=== PATIENT | male | born 1935 | race Caucasian/White ===

== ENCOUNTER → 2017-07-26 | Outpatient (CLI) | payer MEDICARE ==
[~2017-07-26] MED LIST: ASPI-1471 PO; ASPI-757 PO; ASPI81TA94 PO; DIOVAN; FLU45SYR25 IM ONLY; HYDR12.561 PO; LANS15CA32 PO; PNEU0.5D3 IM; SIMV-42 PO; SIMV-49 PO; SIMV10TA98 PO; TADA10TA14 PO; TADA2.5T3 PO; VAL80 PO; VALS160T2 PO; VALS1TAB61 PO; VALS1TAB63 PO
--- NOTE | 2017-07-27 09:06 | EKG ---
FACILITY: [facility] - [place], [place] PATIENT NAME: MARÍA FRANCISCO : [id number] MR: [id number] V: [id number] EXAM DATE: ORDERING PHYSICIAN: CYNDY BROWN TECHNOLOGIST: DAVID Test Reason : ARRHYTHMIA Blood Pressure : / mmHG Vent. Rate : 067 BPM Atrial Rate : 067 BPM P-R Int : 178 ms QRS Dur : 098 ms QT Int : 428 ms P-R-T Axes : 066 002 070 degrees QTc Int : 452 ms Sinus rhythm with occasional premature ventricular complexes Otherwise normal ECG When compared with ECG of 12-SEP-2013 23:04, premature ventricular complexes are now present Referred By: KEVIN Confirmed By:
== END ==
LOC: RESP 16:47
PROVIDERS: ATTEND Internal Medicine
DX: Z02.9 Encounter for administrative examinations, unspecified (principal)

== ENCOUNTER → 2017-08-01 | Outpatient (CLI) | payer MEDICARE ==
--- NOTE | 2017-08-02 17:15 | RT HOLTER TEST ---
FACILITY: [facility] - [place] PATIENT NAME: MARÍA FRANCISCO : [id number] MR: [id number] V: [id number] EXAM DATE: ORDERING PHYSICIAN: CYNDY BROWN TECHNOLOGIST: PANDA Hook-up date: 2017-08-01 13:08:00 Duration: 23:56:00 Test Indications: arrhytmia Medications: BP MED? 87518 QRS complexes 5382 Ventricular ectopics which represent 5 % of total QRS comp. 18 Supraventricular ectopics which represent <1 % of total QRS comp. * Paced QRS complexes which represent % of total QRS comp. VENTRICULAR ECTOPY 5316 Isolated 212 Bigeminal Cycles 33 Couplets 0 Runs 0 Beats in Runs * Beats LONGEST at * BPM at :: -- * Beats FASTEST at * BPM at :: -- SUPRAVENTRICULAR ECTOPY 18 Isolated 0 Couplets 0 Runs 0 Beats in Runs * Beats LONGEST at * BPM at :: -- * Beats FASTEST at * BPM at :: -- HEART RATES 48 MIN at 07:30:48 2017-08-02 65 AVG 105 MAX at 11:34:24 2017-08-02 LONGEST RR 1.696 secs at 03:50:23 2017-08-02 S-T LEVELS Channel 1 -12.800 mm MIN at 13:08:00 2017-08-01 -12.800 mm MAX at 13:08:00 2017-08-01 Channel 2 -12.800 mm MIN at 13:08:00 2017-08-01 -12.800 mm MAX at 13:08:00 2017-08-01 Channel 3 -12.800 mm MIN at 13:08:00 2017-08-01 -12.800 mm MAX at 13:08:00 2017-08-01 The patient was in a sinus rhythm throughout with rare supraventricular ectopy (SVE) and occasional v entricular ectopy (VE) (i.e. about 6% of QRS beats were VE). There were some symptom reports with VE, but others without. Confirmed by MARSHALL ECHEVARRIA ([id number]) on 08/02/2017 5:14:57 PM Referred By: Overread By: MARSHALL ECHEVARRIA
== END ==
LOC: RESP 07:00
PROVIDERS: ATTEND Internal Medicine
DX: I49.9 Cardiac arrhythmia, unspecified (principal)
CPT/HCPCS: 93225; 93226

== ENCOUNTER → 2017-08-25 | Outpatient (CLI) | payer MEDICARE ==
[~2017-08-25] MED LIST changes: -VALS160T2 PO; +VALS160T7 PO
--- NOTE | 2017-08-25 14:53 | RADIOLOGY IMAGING REPORT ---
[place] [facility] [place] NAME[place] Helder Wilkins : 1935 MR: [id number] V: [id number] EXAM DATE: ORDERING PHYSICIAN: CYNDY BROWN TECHNOLOGIST: Location: [facility] [place] Patient: Helder Wilkins : 1935 Visit/Account:[id number] Date of Sevice: 08/25/2017 EXAMINATION: Single Isotope SPECT Imaging with Exercise and Gated SPECT Imaging DATE OF EXAMINATION: 08/25/2017 DATE OF INTERPRETATION: 08/25/2017 REQUESTING PHYSICIAN: CYNDY BROWN INDICATION: The patient is a 82-year-old male evaluated for PVCs. PROCEDURE: After informed consent the patient received an intravenous injection of 11.4 mCi of Tc-9 9m sestamibi followed at the appropriate time interval by rest imaging. The patient then exercised a ccording to the standard Cecilio protocol for 10:50 minutes achieving 11 METS. Resting heart rate was 60 bpm with a peak heart rate of 139 bpm which is 99 % of maximal predicted heart rate for age. Blo od pressure at rest was 149 / 95; blood pressure during exercise was 186 / 74. There was no chest pa in during exercise. Exercise was discontinued because of fatigue. Baseline EKG demonstrates normal sinus rhythm, no ST or T-wave abnormalities. There were no EKG changes of ischemia at peak exercise. Approximately one minute and 30 seconds prior to the termination of exercise, the patient received an intravenous injection of 31.3 mCi of Tc-99m sestamibi followed by stress imaging. RAW DATA: Examination of the summed raw data revealed a good quality study. MYOCARDIAL PERFUSION: The tomographic images demonstrate no evidence of infarct or reversible ischem ia. GATED IMAGES: The gated images demonstrate normal wall motion, ejection fraction 64% IMPRESSION: 1. Good quality study 2. Normal myocardial perfusion scan. 3. Normal LV systolic function; LVEF 64%. 4. Based on the results of this exam, the patient appears to be at low risk for future cardiovascular events. Report Dictated By: Alex Cano at 08/25/2017 2:44 PM Report E-Signed By: Alex Cano at 08/25/2017 2:48 PM WSN:[id number]
--- NOTE | 2017-08-26 23:11 | RT STRESS TEST REPORT ---
FACILITY: [facility] - [place] PATIENT NAME: MARÍA FRANCISCO : [id number] MR: [id number] V: [id number] EXAM DATE: ORDERING PHYSICIAN: CYNDY BROWN TECHNOLOGIST: Jimmy Acquisition Time: 2017-08-25 09:21:14 Total Exercise Time: 00:10:50 Test Indications: PVC's Medications: SEE NM LIST Protocol: JUANY 2 Max HR: 139 BPM 99% of Pred: 140 BPM Max BP: 186/074 mmHG Max Work Load: 9.9 METS see nuclear med rport Confirmed by FRANCIA WILHELM ([id number]) on 08/26/2017 11:11:16 PM Referred By: Overread By: FRANCIA WILHELM
== END ==
LOC: RESP 00:43
PROVIDERS: ATTEND Internal Medicine
DX: I49.3 Ventricular premature depolarization (principal)
CPT/HCPCS: 78452; 93017; A9500

== ENCOUNTER → 2017-11-21 | Outpatient (CLI) | payer MEDICARE | LOC: LAB 08:45 | PROVIDERS: ATTEND Urology | DX: R97.20 Elevated prostate specific antigen [PSA] (principal) | CPT/HCPCS: 36415; 84153 ==

== ENCOUNTER 2017-12-13 00:08 | Day surgery (SDC) | payer MEDICARE ==
[~2017-12-13] VITALS: Ht 180.3 cm; Wt 78.0 kg
[2017-12-13] MEDS ORDERED: LIDOCAINE MPF 1% 5 ML VIAL ONE (07:36)
[2017-12-13] MEDS ORDERED: PROPOFOL EMUL(*) 10MG/ML 20 ML 40 ML ONE (07:36)
--- NOTE | 2017-12-13 07:39 | Short(Outpt) Discharge Summary ---
Discharge Summary Reason for Hosp/Final Diag: (1) Encounter for screening colonoscopy Hospital Course & Plan: sigmoid diverticulosis and multiple polyps in cecal area and 3 mm polyp at 35 cm Departure Discharge to: Home Discharge Instructions Home Meds Active Scripts Hydrochlorothiazide (HYDROCHLOROTHIAZIDE) 12.5 Mg Tablet, 1 TAB PO QDAY, #90 TAB 3 Refills Prov:CYNDY BROWN MD 08/17/17 Valsartan (Valsartan) 160 Mg Tablet, 1 TAB PO QDAY, #90 TAB 3 Refills Prov:CYNDY BROWN MD 05/10/17 Simvastatin (SIMVASTATIN) 10 Mg Tablet, 1 TAB PO QDAY, #90 TAB 3 Refills Prov:CYNDY BROWN MD 05/10/17 Reported Medications Aspirin (ASPIRIN) 81 Mg Tab.chew, 1 TAB PO QDAY, TAB.CHEW 01/20/17 Diet: High Fiber Activity: As Tolerated ROSANA ARZOLA MD December 13, 2017 07:39
--- NOTE | 2017-12-13 07:39 | Post Operative Progress Note ---
Post Operative Progress Note Date: December 13, 2017 Time: 09:46 Surgeon: penny Anesthesia: dr cool Pre-Op Diagnosis: screening colonoscopy Post-Op Diagnosis: sigmoid diverticulosis, 8 2-5 mm polyps in cecal area and 3 mm polyp at 35 cm Procedure(s): colonoscopy and polypectomy ROSANA ARZOLA MD December 13, 2017 07:39
[2017-12-13 08:04] VITALS: BP 150/78
[2017-12-13] MEDS ORDERED: NORMOSOL R SOLN(*) 1000 ML BAG 1,000 ML IV PRN (08:35)
[2017-12-13] MEDS ORDERED: LIDOCAINE/SOD BICARB 8.4% SYR ID ONE (08:35)
[2017-12-13 09:47] VITALS: BP 99/63
[2017-12-13 10:26] VITALS: BP 142/71
[2017-12-13 10:50] VITALS: BP 138/65
[2017-12-13 10:51] VITALS: BP 118/67
--- NOTE | 2017-12-13 15:10 | OPERATIVE REPORT 1 ---
EVENT DATE: December 13, 2017 SURGEON: Nadir Hirsch MD ANESTHESIOLOGIST: Toni Wilson MD ANESTHESIA: Sedation. PREOPERATIVE DIAGNOSIS Screening colonoscopy. POSTOPERATIVE DIAGNOSES 1. Multiple polyps in the cecum and a 3 mm polyp at 35 cm. 2. Sigmoid diverticulosis. PROCEDURE PERFORMED Colonoscopy with polypectomies. DESCRIPTION OF PROCEDURE Patient was placed in the left lateral decubitus position and given intravenous sedation. Rectal exam was unremarkable. Flexible colonoscope was inserted and advanced to the cecum. He had an excellent bowel prep. The ileocecal valve and base of the cecum were identified. He had eight different small polyps in the cecal area. These were removed with the polypectomy snare cautery and retrieved. They ranged from about 5 to 2 mm. After removing these, we suctioned as many as we could. We then slowly withdrew the scope. The rest of the right colon, transverse, and descending colon were. In the sigmoid colon, he had some diverticula. At 35 cm, he had a 3 mm polyp. This was removed with the polypectomy snare cautery and retrieved. Rectum was normal. Scope was retroflexed. That appeared to be normal. Patient should have a repeat colonoscopy in five years. ADINA
== END 2017-12-13 11:15 | disposition home or self-care (01) ==
LOC: OR 00:08
PROVIDERS: ATTEND Surgery
DX: Z12.11 Encounter for screening for malignant neoplasm of colon (principal); D12.0 Benign neoplasm of cecum; D12.5 Benign neoplasm of sigmoid colon; K57.30 Diverticulosis of large intestine without perforation or abscess without bleeding
CPT/HCPCS: 00811; 45385; 88305; J2001; J2704

== ENCOUNTER → 2018-01-11 | Outpatient (CLI) | payer MEDICARE | LOC: LAB 07:53 | PROVIDERS: ATTEND Internal Medicine | DX: I10 Essential (primary) hypertension (principal); E78.5 Hyperlipidemia, unspecified | CPT/HCPCS: 36415; 82040; 82247; 82310; 82374; 82435; 82465; 82565; 82947; 83718; 84075; 84132; 84155; 84295; 84450; 84460; 84478; 84520 ==

== ENCOUNTER → 2018-05-30 | Outpatient (CLI) | payer MEDICARE ==
[~2018-05-30] MED LIST changes: +LOSA100T69 PO; -VALS160T7 PO; +VALS160T8 PO
== END ==
LOC: LAB 08:29
PROVIDERS: ATTEND Urology
DX: C61 Malignant neoplasm of prostate (principal)
CPT/HCPCS: 84153

== ENCOUNTER → 2018-05-30 | Outpatient (CLI) | payer MEDICARE | LOC: LAB 08:27 | PROVIDERS: ATTEND Internal Medicine | DX: E78.00 Pure hypercholesterolemia, unspecified (principal); I10 Essential (primary) hypertension | CPT/HCPCS: 36415; 82040; 82247; 82310; 82374; 82435; 82465; 82565; 82947; 83718; 84075; 84132; 84155; 84295; 84450; 84460; 84478; 84520 ==

== ENCOUNTER → 2018-07-25 | Outpatient (CLI) | payer MEDICARE ==
[~2018-07-25] MED LIST changes: -LOSA100T69 PO; +LOSA100T75 PO
[2018-07-25 10:57] LABS: LDL CHOLESTEROL 59 mg/dl
== END ==
LOC: LAB 08:43
PROVIDERS: ATTEND Internal Medicine
DX: E78.00 Pure hypercholesterolemia, unspecified (principal); I10 Essential (primary) hypertension
CPT/HCPCS: 36415; 82040; 82247; 82310; 82374; 82435; 82465; 82565; 82947; 83718; 84075; 84132; 84155; 84295; 84450; 84460; 84478; 84520

== ENCOUNTER → 2018-09-25 | Outpatient (CLI) | payer MEDICARE ==
[~2018-09-25] MED LIST changes: +IBUP-136 PO
[2018-09-25 16:34] LABS: PLATELET COUNT, AUTOMATED 211 K/uL (150-450)
== END ==
LOC: LAB 15:46
PROVIDERS: ATTEND Internal Medicine
DX: N40.1 Benign prostatic hyperplasia with lower urinary tract symptoms (principal); I10 Essential (primary) hypertension; E78.00 Pure hypercholesterolemia, unspecified
CPT/HCPCS: 36415; 84153; 84443; 85025

== ENCOUNTER → 2018-10-04 | Outpatient (CLI) | payer MEDICARE | LOC: LAB 11:20 | PROVIDERS: ATTEND Internal Medicine | DX: D64.9 Anemia, unspecified (principal); R89.9 Unspecified abnormal finding in specimens from other organs, systems and tissues | CPT/HCPCS: 36415; 82607; 82728; 82746; 83540; 83550 ==